=== PATIENT | male | born 1945 | race Caucasian/White ===

== ENCOUNTER 2023-10-09 03:39 | Inpatient (IN) | payer MEDICARE ==
[~2023-10-09] VITALS: Ht 182.9 cm; Wt 84.9 kg
[2023-10-09] MEDS ORDERED: Morphine 4 MG/ML VIAL IV ONE (04:30)
[2023-10-09] MEDS ORDERED: Famotidine 20 MG/2 ML VIAL IV ONE (04:30)
[2023-10-09 04:33] LABS: BASO # 0.02 K/mm3 (0.02-0.10); EOS # 0.24 K/mm3 (0.04-0.40); EOS % 3.3 % (0.0-4.0); HEMATOCRIT 48.8 % (42.0-52.0); LYMPH# 1.38 K/mm3 (1.50-4.00); MEAN CELL VOLUME 93 fl (78-100); MEAN CORPUSCULAR HEMOGLOBIN 30 pg (27-31); MEAN CORPUSCULAR HGB CONC 33 g/dL (33-37); MEAN PLATELET VOLUME 11.1 fl (7.4-10.4); MONO # 0.78 K/mm3 (0.20-0.80); NEU # 4.75 K/mm3 (1.40-6.50); PLATELET COUNT 158 K/mm3 (130-400); RED BLOOD COUNT 5.27 M/mm3 (4.20-5.60); RED CELL DISTRIBUTION WIDTH 12.4 % (11.5-14.5); WHITE BLOOD COUNT 7.2 K/mm3 (4.8-10.8)
[2023-10-09 04:45] LABS: ALBUMIN 3.9 g/dL (3.4-4.8)
[2023-10-09 04:46] LABS: SODIUM 139 mmol/L (136-145)
[2023-10-09 04:48] LABS: GLUCOSE 117 mg/dL (75-110)
[2023-10-09 04:49] LABS: CARBON DIOXIDE 26 mmol/L (23-31)
[2023-10-09 04:50] LABS: TOTAL BILIRUBIN 0.6 mg/dL (0.2-1.2)
[2023-10-09 04:52] LABS: TROPONIN-I < 0.030 ng/mL (0.00-0.033)
[2023-10-09 04:53] LABS: AST-SGOT 23 U/L (5-34)
[2023-10-09 04:54] LABS: ALT/SGPT 17 U/L (0-55)
[2023-10-09 04:55] LABS: LIPASE 43 U/L (8-78)
[2023-10-09 05:52] LABS: D-DIMER 0.44 mg/L FEU (0.15-0.50)
[2023-10-09] MEDS ORDERED: Albuterol 0.083% Nebule (2.5 MG/3 ML) IH ONE (06:00)
[2023-10-09] MEDS ORDERED: dexAMETHasone 4 MG TAB PO ONE (06:30)
[2023-10-09] MEDS ORDERED: Azithromycin 250 MG TAB PO ONE (06:30)
[2023-10-09] MEDS ORDERED: Albuterol 0.083% Nebule (2.5 MG/3 ML) IH PRN (07:30)
[2023-10-09] MEDS ORDERED: Acetaminophen 325 MG TAB PO PRN (07:30)
[2023-10-09] MEDS ORDERED: 1/2 NS 1,000 ML IV SCH (07:30)
[2023-10-09] MEDS ORDERED: Lisinopril 20 MG TAB PO SCH (09:00)
[2023-10-09] MEDS ORDERED: predniSONE 20 MG TAB PO SCH (09:00)
[2023-10-09 10:45] VITALS: BP 122/64
[2023-10-09 14:49] VITALS: BP 153/78
[2023-10-09 17:50] VITALS: BP 147/90
--- NOTE | 2023-10-09 20:00 | NUR ---
PT IS VISITING WITH HIS FRIEND AND WALKING AD TURNER IN THE ROOM. BED IS IN LOW POSITION AND O2 IS IN PLACE. PT IS A&O X4 AND STATES HE WOULD LIKE A SHOWER LATER
[2023-10-09 22:11] VITALS: BP 157/85
[2023-10-10 02:08] VITALS: BP 155/83
[2023-10-10 05:30] VITALS: BP 154/75
--- NOTE | 2023-10-10 07:00 | NUR ---
PTS SPO2 NOTED TO BE IN THE MID TO LOW 80'S AT SHIFT CHANGE. TO ROOM TO ASSESS AND NOTED NO NC IN PLACE, PLACED BACK ON PATIENT. SPO2 MONOTOR NOTED TO BE FOLDED ON FINGER, CHANGED PER LOGAN MCCULLOUGH.
--- NOTE | 2023-10-10 08:55 | NUR ---
PT UP AND WALKING AROUND ROOM WHEN THIS RN ENTERS, PT DRESSED, SHOES ON AND TALKATIVE. A/O X4.
[2023-10-10] MEDS ORDERED: Azithromycin 250 MG TAB PO SCH (09:00)
--- NOTE | 2023-10-10 09:00 | NUR ---
PT REPORTS THAT HE WANTS TO LEAVE TODAY. PT REPORTS THAT HE HAS TO WORK AND HIS RIDE WILL HAVE A NARROW WINDOW FOR HER LUNCH BREAK TO PICK HIM UP AROUND 1230. PT DECLINES, FOOT OR SKIN ASSESSMENT WHEN ASKED. PT DECLINES LOVENOX INJECTION. PT NOTIFIED THAT HE COULD POSSIBLY HAVE TO SIGN OUT AMA SINCE HE IS REQUIRING OXYGEN, PT REPORTS THAT IF NEEDED HE WILL. REQUESTS TO SPEAK WITH ERP ABOUT DSICHARGING SOON. ERP NOTIFIED AND REPORTS THAT SHE WILL COME TO BEDSIDE TO SPEAK WITH PT SOON.
[2023-10-10 10:04] VITALS: BP 143/79
--- NOTE | 2023-10-10 10:16 | NUR ---
[place] PAPERWORK SIGNED BY PATIENT.
--- NOTE | 2023-10-10 10:18 | NUR ---
APPOINTMENT MADE WITH PATIENT'S PCP, DR HALLEY OREILLY IN [place] FOR TODAY AT 1700.
[2023-10-10] MEDS ORDERED: ALBUTEROL2.5 MG/3 M IH (10:20)
[2023-10-10] MEDS ORDERED: ZITHROMAX TRI-500 MG PO (10:20)
[2023-10-10] MEDS ORDERED: LISINOPRIL20 MG PO (10:21)
[2023-10-10] MEDS ORDERED: PREDNISONE20 M1 PO (10:22)
[2023-10-10] MEDS ORDERED: NEB INH (10:23)
--- NOTE | 2023-10-10 10:24 | NUR ---
QRS:0.11 QT: 0.24 WI:0.09 ERP RIGOBERTO NOTIFIED
--- NOTE | 2023-10-10 10:43 | NUR ---
IV AND TELE DISCONTINUED PER ERP APPROVAL.
--- NOTE | 2023-10-10 11:40 | NUR ---
ALL PAPERWORK, MEDICATION, DISCHARGE, AND FOLLOW UP INSTRUCTIONS REVIEWED WITH PATIENT, PT VERBALIZES UDNERSTANINDG. PT NOTIFIED OF FOLLOW UP APT MADE PER FACILITY AT 1700 TODAY FOR PT AT HIS PCP. [place] PAPERWORK FILED.
--- NOTE | 2023-10-10 12:21 | NUR ---
PT AMBULATORY FROM DEPARTMENT WITH FRIEND WHO WILL BE ACCOMPANYING AND TRANSPORTING PATIENT HOME. NO DISTRESS NOTED. ALL BELONGINGS TAKEN UPON DISCHARGE. PT ALERT.
== END 2023-10-10 12:44 | disposition home or self-care (01) | DRG 203 ==
LOC: ED 03:39 → MED/SURG 07:00
PROVIDERS: ADMIT Family Medicine
DX: J45.909 Unspecified asthma, uncomplicated (principal); R09.02 Hypoxemia; I10 Essential (primary) hypertension; E78.5 Hyperlipidemia, unspecified; E87.5 Hyperkalemia; R00.0 Tachycardia, unspecified
CPT/HCPCS: J1650; J2270; J3490; J7512